=== PATIENT | female | born 1960 | race African-American/Black ===

== ENCOUNTER 2017-10-20 08:52 | Emergency (ER) | payer MEDICAID ==
[~2017-10-20] VITALS: Ht 160 cm; Wt 118.0 kg
[2017-10-20] MEDS ORDERED: ACETAMINOPHEN WITH CODEINE 300/30MG TABLET PO STA (09:18)
[2017-10-20 09:43] LABS: BASOPHILS % 0.5 % (0.0-2.0); EOSINOPHILS % 5.3 % (0.0-5.0); HEMATOCRIT. 35.8 % (36.0-48.0); HEMOGLOBIN. 11.4 g/dL (12.0-16.0); LYMPHOCYTES % 27.5 % (20.0-50.0); MEAN CORPUSCULAR HEMOGLOBIN 27.2 pg (28.0-32.0); MEAN CORPUSCULAR VOLUME 85.6 fL (81.0-99.0); MEAN PLATELET VOLUME 8.2 fl (7.4-10.4); MONOCYTES % 6.6 % (2.0-8.0); NEUTROPHILS % 60.1 % (40.0-76.0); PLATELET 238 x1000/uL (130-400); RED BLOOD CELL COUNT 4.18 mill/uL (4.2-5.4); RED CELL DISTRIBUTION WIDTH 16.4 % (11.6-14.6)
[2017-10-20 09:48] LABS: CHLORIDE 105 mEq/L (98-107)
[2017-10-20 09:49] LABS: PROTHROMBIN TIME 10.4 sec (9.4-11.6)
[2017-10-20] MEDS ORDERED: IOHEXOL-350 100 ML BOTTLE ONE (10:55)
[2017-10-20 14:26] VITALS: BP 131/73
== END 2017-10-20 14:26 | disposition left against medical advice (07) ==
LOC: ER 08:52 → ENRESERV 19:38 → CANRESERV 19:38 → CANBEDREQ 10-21 15:50
DX: R07.89 Other chest pain (principal); E11.65 Type 2 diabetes mellitus with hyperglycemia; R06.02 Shortness of breath; M25.562 Pain in left knee; I10 Essential (primary) hypertension; Z90.49 Acquired absence of other specified parts of digestive tract; Z90.710 Acquired absence of both cervix and uterus
CPT/HCPCS: 36415; 71045; 71275; 80053; 83880; 84484; 85025; 85610; 93005; 93971; 99285; Q9967; Z7610

== ENCOUNTER 2019-06-06 12:59 | Emergency (ER) | payer MEDICAID ==
[~2019-06-06] VITALS: Ht 160 cm; Wt 113.0 kg
[2019-06-06 14:29] LABS: BASOPHILS % 0.5 % (0.0-2.0); EOSINOPHILS % 2.6 % (0.0-5.0); HEMATOCRIT. 36.5 % (36.0-48.0); LYMPHOCYTES % 26.2 % (20.0-50.0); MEAN CORPUSCULAR HEMOGLOBIN 28.2 pg (28.0-32.0); MEAN CORPUSCULAR VOLUME 85.8 fL (81.0-99.0); MEAN PLATELET VOLUME 8.1 fl (7.4-10.4); MONOCYTES % 10.4 % (2.0-8.0); NEUTROPHILS % 60.3 % (40.0-76.0); PLATELET 220 x1000/uL (130-400); RED BLOOD CELL COUNT 4.25 mill/uL (4.2-5.4); RED CELL DISTRIBUTION WIDTH 15.3 % (11.6-14.6)
[2019-06-06 14:34] LABS: CHLORIDE 108 mEq/L (98-107)
[2019-06-06] MEDS ORDERED: KETOROLAC 30MG/ML VIAL IV ONE (15:00)
[2019-06-06] MEDS: POTASSIUM CHLORIDE 20MEQ TABLET SR PO NR ×2 (15:54→18:32)
[2019-06-06] MEDS ORDERED: CLONIDINE 0.1MG TABLET PO PRN (19:00)
[2019-06-06] MEDS ORDERED: KCL 10MEQ/50ML PREMIX 50 ML IV SCH (19:00)
[2019-06-06] MEDS ORDERED: ACETAMINOPHEN 325MG TABLET PO PRN (19:00)
[2019-06-06] MEDS ORDERED: POTASSIUM CHLORIDE 20MEQ TABLET SR PO ONE (19:00)
[2019-06-06] MEDS ORDERED: ONDANSETRON HCL 4MG/2ML INJ IV PRN (19:00)
[2019-06-06] MEDS ORDERED: LORAZEPAM 0.5MG TABLET PO PRN (19:00)
[2019-06-06 20:08] VITALS: BP 149/89
[2019-06-06] MEDS ORDERED: HEPARIN 5000 UNITS/ML VIAL SUBCUT SCH (21:00)
== END 2019-06-06 20:11 | disposition home or self-care (01) ==
LOC: ER 12:59 → CANBEDREQ 19:13 → ER 20:11
DX: J06.9 Acute upper respiratory infection, unspecified (principal); I10 Essential (primary) hypertension; E11.9 Type 2 diabetes mellitus without complications; E87.6 Hypokalemia; E78.00 Pure hypercholesterolemia, unspecified
CPT/HCPCS: 36415; 71045; 80053; 83880; 84484; 85025; 93005; 96374; 99285; J1885